=== PATIENT | female | born 1990 ===

== ENCOUNTER → 2021-10-22 | Outpatient (CLI) | payer OTHER ==
[2021-10-27 07:11] LABS: HPV 16 Negative (Negative); HPV 18 Negative (Negative); HPV OTHER HR TYPES Negative (Negative)
== END | disposition home or self-care (01) ==
LOC: LAB SHORT 11:10 → LAB 11:10
PROVIDERS: Family Medicine
DX: Z12.4 Encounter for screening for malignant neoplasm of cervix (principal)
CPT/HCPCS: 87624; G0123